=== PATIENT | male | born 1965 | race Caucasian/White ===

== ENCOUNTER 2024-05-05 08:29 | Day surgery (SDC) | payer OTHER ==
[~2024-05-05 08:29] MED LIST: Midazolam 1 MG/ML 2 ML SDV ONE; Propofol 200 MG/20 ML SDV ONE
[2024-05-05] MEDS ORDERED: Sodium Chloride 0.9% 10 ML Syringe FLUSH PRN (08:30)
[2024-05-05] MEDS: Lactated Ringers 1,000 ML IV SCH (09:23)
[2024-05-05] MEDS ORDERED: Propofol 200 MG/20 ML SDV IV ONE (10:15)
[2024-05-05 10:38] VITALS: BP 133/80; PULSE 55
== END 2024-05-05 10:36 | disposition home or self-care (01) ==
LOC: LL.SDS 08:29
PROVIDERS: ATTEND Surgery
DX: Z12.11 Encounter for screening for malignant neoplasm of colon (principal); M48.062 Spinal stenosis, lumbar region with neurogenic claudication; Z86.010 Personal history of colon polyps; Z79.899 Other long term (current) drug therapy
CPT/HCPCS: J2250; J2704; J7120